=== PATIENT | female | born 1950 | race Caucasian/White ===

== ENCOUNTER 2018-03-25 12:19 | Inpatient (IN) | payer MEDICARE, BC ==
[2018-03-24 15:13] LABS: BASOPHILS % (AUTO) 0.6 % (0-1); EOSINOPHILS # (AUTO) 0.1 X10'3 (0-0.9); EOSINOPHILS % (AUTO) 1.6 % (0-6); LYMPHOCYTES # (AUTO) 3.1 X10'3 (1.1-4.8); LYMPHOCYTES % (AUTO) 40.8 % (21-51); MEAN CORPUSCULAR HGB CONC 34.2 % (33.0-36.5); MEAN CORPUSCULAR VOLUME 87.7 FL (78-98); MEAN PLATELET VOLUME 7.6 FL (7.4-10.4); MONOCYTES # (AUTO) 0.5 X10'3 (0-0.9); NEUTROPHILS # (AUTO) 3.9 X10'3 (1.8-7.7); PRE OP HEMATOCRIT 39.8 % (35.0-45.0); PRE OP HEMOGLOBIN 13.6 g/dL (12.0-16.0); PRE OP PLATELET COUNT 358 X10'3 (140-440); RED BLOOD COUNT 4.53 X10'6 (4.20-5.60); RED CELL DISTRIBUTION WIDTH 13.5 % (11.5-14.5)
[2018-03-24 15:20] LABS: CLARITY,URINE CLEAR (Clear); COLOR,URINE YELLOW (Yellow); GLUCOSE, URINE NEGATIVE (Neg); KETONES,URINE NEGATIVE (Neg); LEUKOCYTE ESTERASE ,URINE NEGATIVE (Neg); NITRITES, URINE NEGATIVE (Neg); OCCULT BLOOD,URINE MODERATE (Neg); PH,URINE 5.5 (4.8-8.0); PROTEIN,URINE NEGATIVE (Neg)
[2018-03-24 15:22] LABS: UA COLLECTION TYPE CLN CATCH MIDSTREAM
[2018-03-24 15:26] LABS: BACTERIA,URINE 1+ /HPF (Neg); MUCUS STRANDS FEW /LPF (Neg); SQUAMOUS EPITHELIAL CELL,UR FEW /LPF (FEW); WBC,URINE 0-4 /HPF (0-4)
[2018-03-24 15:30] LABS: ALBUMIN 4.1 G/DL (3.4-5.0); ALBUMIN/GLOBULIN RATIO 1.1 (1.1-1.5); ALKALINE PHOSPHATASE 99 IU/L (46-116); BLOOD UREA NITROGEN 20 MG/DL (7-18); BUN/CREATININE RATIO 24.4 (6.6-38.0); CALCIUM 9.8 MG/DL (8.5-10.1); CHLORIDE 103 MMOL/L (99-107); CREATININE 0.82 MG/DL (0.40-0.90); PRE OP ALT 33 U/L (30-65); PRE OP ANION GAP 10 (8-16); PRE OP AST 21 U/L (10-37); PRE OP GLUCOSE 106 MG/DL (70-104); PRE OP POTASSIUM 3.6 MMOL/L (3.4-5.1); PRE OP SODIUM 141 MMOL/L (135-145); TOTAL CARBON DIOXIDE 28.4 MMOL/L (24-32); TOTAL PROTEIN 7.8 G/DL (6.4-8.2); eGFR 69 ML/MIN
[2018-03-25] VITALS (16 sets, daily range): BP systolic 94–127; BP diastolic 46–75
[~2018-03-25] VITALS: Ht 170.2 cm; Wt 108.3 kg
[~2018-03-25 12:19] MED LIST: ASPI-611 PO; ATEN50TA PO; CHOL400T PO; Cefazolin 2GM/100ML NS IVPB IV ONE; DOCUMENT DATE & TIME OF BETA-BLOCKER PO ONE; FISH OIL; FLUO20CA39 PO; HYDR12.55 PO; PRAV40TA3 PO; UBID50TA3 PO; famotidine 20mg tablet PO ONE; ringers solution, lacted 1,000 ML IV SCH
[2018-03-25] MEDS ORDERED: LIDOcaine 1% (10mg/ml) 2ml vial ONE ×2 (13:01→13:41)
[2018-03-25] MEDS ORDERED: ringers solution, lacted 1,000 ML IV SCH (13:49)
[2018-03-25] MEDS ORDERED: ondansetron/PF 4mg/2ml inj IV PRN ×2 (13:50→18:50)
[2018-03-25] MEDS ORDERED: meperidine/PF 25mg/ml syringe IV PRN ×3 (13:50)
[2018-03-25] MEDS ORDERED: morphine 4 MG/ML inj SYRINge IV PRN ×2 (13:50)
[2018-03-25] MEDS ORDERED: proCHLORperazine 10 MG/2 ml inj IV PRN (13:50)
[2018-03-25] MEDS ORDERED: sevoflurane 250ml liquid IH ONE (14:33)
[2018-03-25] MEDS ORDERED: glycopyrrolate 0.2mg/ml inj ONE (14:33)
[2018-03-25] MEDS ORDERED: dexamethasone sod phosphate 4mg/ml inj. ONE (14:33)
[2018-03-25] MEDS ORDERED: ondansetron/PF 4mg/2ml inj ONE (14:33)
[2018-03-25] MEDS ORDERED: MIDAZolam 5mg/5ml vial ONE (14:34)
[2018-03-25] MEDS ORDERED: fentaNYL /PF 50mcg/ml 5ml ampule ONE (14:47)
[2018-03-25] MEDS ORDERED: propofol inj 20 ML IV ONE (14:52)
[2018-03-25] MEDS ORDERED: rocuronium 10mg/ml inj IV ONE ×2 (15:31→15:32)
[2018-03-25] MEDS ORDERED: fentaNYL/PF 50MCG/1 ML 2ML syringe ONE (18:08)
[2018-03-25] MEDS: NORMAL SALINE IV SCH (18:15)
[2018-03-25] MEDS: NALOXONE IV SCH (18:15)
[2018-03-25] MEDS ORDERED: neostigmine methylsulfate 1 MG/ML 10ml vial ONE (18:38)
[2018-03-25] MEDS ORDERED: [UNRECOGNIZED DRUG - OTHER] EPI SCH (19:00)
[2018-03-25] MEDS ORDERED: BUPIVACAINE EPI SCH ×3 (19:00→20:40)
[2018-03-25] MEDS ORDERED: MORPHINE EPI SCH ×3 (19:00→20:40)
[2018-03-25 19:06] LABS: ABG BASE EXCESS -1.3 mmol/L (-2.0-3.0); ABG OXYGEN SATURATION 98.7 % (95-98); ABG PCO2 (T) 41.2 mmHg (32.0-45.0); ABG PO2 (T) 140.1 mmHg (83-108); FCOHb 0.3 % (0.5-1.5); FLOW 15 L/min; FMetHb 0.3 % (0.3-1.12); FO2Hb 98.1 % (94-100); PATIENT TEMPERATURE 36.2; RESPIRATORY RATE (OBSERVED) 18 b/min; TOTAL HEMOGLOBIN 13.5 G/dl (12.0-16.0)
[2018-03-25] MEDS ORDERED: [UNRECOGNIZED DRUG - OTHER] EPI SCH (19:14)
[2018-03-25] MEDS ORDERED: [UNRECOGNIZED DRUG - OTHER] EPI SCH (20:40)
[2018-03-25] MEDS: atorvastatin 10mg tablet PO SCH (21:00)
[2018-03-26] VITALS (24 sets, daily range): BP systolic 92–130; BP diastolic 46–70
[2018-03-26] MEDS ORDERED: NORepinephrine 8mg/ 250ml NS 250 ML IV SCH (01:30)
[2018-03-26] MEDS ORDERED: NORepinephrine 8mg/ 250ml NS 250 ML IV ONE (01:36)
[2018-03-26] MEDS: potassium CL 20mEq in D5-1/2NS 1,000 ML IV SCH ×3 (01:40→13:54)
[2018-03-26] MEDS: ceFAZolin inj. 1,000 MG in dextrose 5%-water 50ml 50 ML IV SCH ×2 (01:40→09:01)
[2018-03-26 02:54] LABS: BASOPHILS % (AUTO) 0.2 % (0-1); EOSINOPHILS % (AUTO) 0 % (0-6); HEMATOCRIT 37.6 % (35.0-45.0); HEMOGLOBIN 12.7 g/dl (12.0-16.0); LYMPHOCYTES # (AUTO) 0.8 X10'3 (1.1-4.8); LYMPHOCYTES % (AUTO) 5.4 % (21-51); MEAN CORPUSCULAR HEMOGLOBIN 30.2 PG (27.0-31.0); MEAN CORPUSCULAR HGB CONC 33.9 % (33.0-36.5); MEAN CORPUSCULAR VOLUME 89.2 FL (78-98); MEAN PLATELET VOLUME 7.8 FL (7.4-10.4); MONOCYTES # (AUTO) 0.5 X10'3 (0-0.9); MONOCYTES % (AUTO) 3.2 % (2-12); NEUTROPHILS # (AUTO) 14.3 X10'3 (1.8-7.7); NEUTROPHILS % (AUTO) 91.2 % (42-75); PLATELET COUNT 323 X10'3 (140-440); RED BLOOD COUNT 4.21 X10'6 (4.20-5.60); RED CELL DISTRIBUTION WIDTH 13.4 % (11.5-14.5); WHITE BLOOD COUNT 15.7 X10'3 (4.5-11.0)
[2018-03-26 03:08] LABS: ALBUMIN 3.2 G/DL (3.4-5.0); ANION GAP 10 (8-16); BLOOD UREA NITROGEN 13 MG/DL (7-18); BUN/CREATININE RATIO 14.4 (6.6-38.0); CALCIUM 8.4 MG/DL (8.5-10.1); CHLORIDE 103 MMOL/L (99-107); GLUCOSE 182 MG/DL (70-104); POTASSIUM 4.4 MMOL/L (3.5-5.1); SODIUM 140 MMOL/L (135-145); TOTAL CARBON DIOXIDE 27.3 MMOL/L (24-32); eGFR 62 ML/MIN
[2018-03-26] MEDS: diphenhydrAMINE 50 mg/ml inj IV PRN ×2 (04:08→21:20)
[2018-03-26] MEDS: atenolol 50mg tablet PO SCH (08:00)
[2018-03-26] MEDS ORDERED: non-formulary drug (Ubidecarenone (Coq10) 50 MG) PO SCH (08:00)
[2018-03-26] MEDS: FLUoxetine 20mg capsule PO SCH (09:00)
[2018-03-26] MEDS: HYDROchlorothiazide 12.5mg capsule PO SCH (09:00)
[2018-03-26] MEDS: aspirin 81mg tablet.DR PO SCH (09:00)
[2018-03-26] MEDS: cholecalciferol (vitamin D) 400 unit tablet PO SCH (09:01)
[2018-03-26] MEDS: morphine sulfate /PF inj. 8 MG in normal saline 100ml IV soln 84 ML EPI SCH (10:32)
[2018-03-26] MEDS: NORMAL SALINE IV SCH (14:15)
[2018-03-26] MEDS: NALOXONE IV SCH (14:15)
[2018-03-26] MEDS ORDERED: ketorolac trometh. 30mg/ml inj. IV ONE (20:45)
[2018-03-26] MEDS: atorvastatin 10mg tablet PO SCH (21:20)
[2018-03-26] MEDS: magnesium oxide 400mg tablet PO SCH (21:20)
[2018-03-26] MEDS ORDERED: ketorolac tromethamine 15mg/ml inj. IV ONE (21:35)
[2018-03-27] VITALS (24 sets, daily range): BP systolic 90–122; BP diastolic 45–57
[2018-03-27] MEDS: morphine sulfate /PF inj. 8 MG in normal saline 100ml IV soln 84 ML EPI SCH ×2 (02:40→13:45)
[2018-03-27 03:15] LABS: BASOPHILS % (AUTO) 0.3 % (0-1); EOSINOPHILS # (AUTO) 0.1 X10'3 (0-0.9); EOSINOPHILS % (AUTO) 0.8 % (0-6); HEMATOCRIT 35.2 % (35.0-45.0); HEMOGLOBIN 11.8 g/dl (12.0-16.0); LYMPHOCYTES # (AUTO) 2.1 X10'3 (1.1-4.8); LYMPHOCYTES % (AUTO) 12.8 % (21-51); MEAN CORPUSCULAR HGB CONC 33.4 % (33.0-36.5); MEAN CORPUSCULAR VOLUME 89.8 FL (78-98); MEAN PLATELET VOLUME 7.5 FL (7.4-10.4); MONOCYTES # (AUTO) 1.3 X10'3 (0-0.9); NEUTROPHILS # (AUTO) 12.5 X10'3 (1.8-7.7); NEUTROPHILS % (AUTO) 78.1 % (42-75); PLATELET COUNT 296 X10'3 (140-440); RED BLOOD COUNT 3.92 X10'6 (4.20-5.60); RED CELL DISTRIBUTION WIDTH 13.9 % (11.5-14.5); WHITE BLOOD COUNT 16.1 X10'3 (4.5-11.0)
[2018-03-27 03:27] LABS: ALBUMIN 2.9 G/DL (3.4-5.0); ANION GAP 3 (8-16); BLOOD UREA NITROGEN 11 MG/DL (7-18); BUN/CREATININE RATIO 13.3 (6.6-38.0); CALCIUM 8.1 MG/DL (8.5-10.1); CHLORIDE 102 MMOL/L (99-107); CREATININE 0.83 MG/DL (0.40-0.90); GLUCOSE 145 MG/DL (70-104); SODIUM 136 MMOL/L (135-145); TOTAL CARBON DIOXIDE 30.9 MMOL/L (24-32); eGFR 68 ML/MIN
[2018-03-27 03:47] LABS: PHOSPHORUS 2.5 MG/DL (2.3-4.5)
[2018-03-27] MEDS: potassium CL 20mEq in D5-1/2NS 1,000 ML IV SCH ×2 (04:33→11:46)
[2018-03-27] MEDS: diphenhydrAMINE 50 mg/ml inj IV PRN ×3 (05:12→13:01)
[2018-03-27] MEDS: aspirin 81mg tablet.DR PO SCH (07:57)
[2018-03-27] MEDS: magnesium oxide 400mg tablet PO SCH ×2 (07:57→19:40)
[2018-03-27] MEDS: cholecalciferol (vitamin D) 400 unit tablet PO SCH (07:57)
[2018-03-27] MEDS: FLUoxetine 20mg capsule PO SCH (07:57)
[2018-03-27] MEDS: atenolol 50mg tablet PO SCH (07:58)
[2018-03-27] MEDS: HYDROchlorothiazide 12.5mg capsule PO SCH (08:00)
[2018-03-27] MEDS: NALOXONE IV SCH ×2 (10:15→16:04)
[2018-03-27] MEDS: NORMAL SALINE IV SCH ×2 (10:15→16:04)
[2018-03-27] MEDS: HYDROcodone/acetaminophen 10/325mg tab PO PRN ×2 (18:25→22:24)
[2018-03-27] MEDS: atorvastatin 10mg tablet PO SCH (19:41)
[2018-03-27] MEDS: ketorolac tromethamine 15mg/ml inj. IV SCH (19:41)
[2018-03-28] VITALS (23 sets, daily range): BP systolic 81–131; BP diastolic 49–67
[2018-03-28] MEDS: ketorolac tromethamine 15mg/ml inj. IV SCH ×3 (01:35→14:00)
[2018-03-28 02:35] LABS: BASOPHILS % (AUTO) 0.2 % (0-1); EOSINOPHILS # (AUTO) 0.1 X10'3 (0-0.9); EOSINOPHILS % (AUTO) 1.4 % (0-6); HEMATOCRIT 30.8 % (35.0-45.0); HEMOGLOBIN 10.4 g/dl (12.0-16.0); MEAN CORPUSCULAR HEMOGLOBIN 30.3 PG (27.0-31.0); MEAN CORPUSCULAR HGB CONC 33.8 % (33.0-36.5); MEAN CORPUSCULAR VOLUME 89.4 FL (78-98); MEAN PLATELET VOLUME 7.4 FL (7.4-10.4); MONOCYTES # (AUTO) 0.7 X10'3 (0-0.9); MONOCYTES % (AUTO) 7.1 % (2-12); NEUTROPHILS # (AUTO) 6.8 X10'3 (1.8-7.7); NEUTROPHILS % (AUTO) 70.3 % (42-75); PLATELET COUNT 212 X10'3 (140-440); RED BLOOD COUNT 3.45 X10'6 (4.20-5.60); RED CELL DISTRIBUTION WIDTH 13.5 % (11.5-14.5); WHITE BLOOD COUNT 9.7 X10'3 (4.5-11.0)
[2018-03-28 02:51] LABS: ALBUMIN 2.5 G/DL (3.4-5.0); ANION GAP 0 (8-16); BLOOD UREA NITROGEN 11 MG/DL (7-18); BUN/CREATININE RATIO 15.9 (6.6-38.0); CHLORIDE 100 MMOL/L (99-107); CREATININE 0.69 MG/DL (0.40-0.90); GLUCOSE 128 MG/DL (70-104); POTASSIUM 3.6 MMOL/L (3.5-5.1); SODIUM 133 MMOL/L (135-145); eGFR 84 ML/MIN
[2018-03-28] MEDS: HYDROchlorothiazide 12.5mg capsule PO SCH (08:03)
[2018-03-28] MEDS: atenolol 50mg tablet PO SCH (08:03)
[2018-03-28] MEDS: cholecalciferol (vitamin D) 400 unit tablet PO SCH (08:03)
[2018-03-28] MEDS: aspirin 81mg tablet.DR PO SCH (08:03)
[2018-03-28] MEDS: magnesium oxide 400mg tablet PO SCH ×2 (08:03→20:04)
[2018-03-28] MEDS: FLUoxetine 20mg capsule PO SCH (08:03)
[2018-03-28] MEDS: furosemide 20 MG/2 ML vial IV SCH ×2 (10:05→20:04)
[2018-03-28] MEDS: potassium CL 20mEq in D5-1/2NS 1,000 ML IV SCH (10:06)
[2018-03-28] MEDS: morphine sulfate /PF inj. 8 MG in normal saline 100ml IV soln 84 ML EPI SCH (12:00)
[2018-03-28] MEDS: HYDROcodone/acetaminophen 10/325mg tab PO PRN ×2 (16:02→20:19)
[2018-03-28] MEDS: atorvastatin 10mg tablet PO SCH (20:04)
[2018-03-29] VITALS (7 sets, daily range): BP systolic 103–131; BP diastolic 48–81
[2018-03-29] MEDS: magnesium oxide 400mg tablet PO SCH ×5 (00:55→20:12)
[2018-03-29] MEDS: HYDROcodone/acetaminophen 10/325mg tab PO PRN ×6 (00:56→23:06)
[2018-03-29 05:50] LABS: BASOPHILS % (AUTO) 0.2 % (0-1); EOSINOPHILS # (AUTO) 0.2 X10'3 (0-0.9); EOSINOPHILS % (AUTO) 2.4 % (0-6); HEMATOCRIT 34.4 % (35.0-45.0); HEMOGLOBIN 11.6 g/dl (12.0-16.0); LYMPHOCYTES # (AUTO) 1.8 X10'3 (1.1-4.8); LYMPHOCYTES % (AUTO) 24.7 % (21-51); MEAN CORPUSCULAR HGB CONC 33.7 % (33.0-36.5); MEAN CORPUSCULAR VOLUME 89.1 FL (78-98); MEAN PLATELET VOLUME 7.8 FL (7.4-10.4); MONOCYTES # (AUTO) 0.6 X10'3 (0-0.9); MONOCYTES % (AUTO) 7.6 % (2-12); NEUTROPHILS # (AUTO) 4.9 X10'3 (1.8-7.7); NEUTROPHILS % (AUTO) 65.1 % (42-75); PLATELET COUNT 260 X10'3 (140-440); RED BLOOD COUNT 3.86 X10'6 (4.20-5.60); RED CELL DISTRIBUTION WIDTH 13.4 % (11.5-14.5); WHITE BLOOD COUNT 7.5 X10'3 (4.5-11.0)
[2018-03-29 06:38] LABS: ALBUMIN 2.5 G/DL (3.4-5.0); ANION GAP 3 (8-16); BLOOD UREA NITROGEN 10 MG/DL (7-18); BUN/CREATININE RATIO 15.2 (6.6-38.0); CALCIUM 8.6 MG/DL (8.5-10.1); CHLORIDE 101 MMOL/L (99-107); CREATININE 0.66 MG/DL (0.40-0.90); GLUCOSE 107 MG/DL (70-104); POTASSIUM 3.5 MMOL/L (3.5-5.1); SODIUM 140 MMOL/L (135-145); TOTAL CARBON DIOXIDE 35.6 MMOL/L (24-32); eGFR 89 ML/MIN
[2018-03-29] MEDS: aspirin 81mg tablet.DR PO SCH (08:14)
[2018-03-29] MEDS: FLUoxetine 20mg capsule PO SCH (08:14)
[2018-03-29] MEDS: cholecalciferol (vitamin D) 400 unit tablet PO SCH (08:14)
[2018-03-29] MEDS: atenolol 50mg tablet PO SCH (08:14)
[2018-03-29] MEDS: furosemide 20 MG/2 ML vial IV SCH ×2 (08:14→20:12)
[2018-03-29] MEDS: HYDROchlorothiazide 12.5mg capsule PO SCH (08:14)
[2018-03-29] MEDS: enoxaparin 40mg/0.4ml syringe SUBCUT SCH (08:15)
[2018-03-29] MEDS: atorvastatin 10mg tablet PO SCH (20:38)
[2018-03-30] MEDS: magnesium oxide 400mg tablet PO SCH ×6 (00:06→20:19)
[2018-03-30] MEDS: HYDROmorphone 1 mg/ml syringe IV PRN ×4 (02:21→20:47)
[2018-03-30 05:59] LABS: BASOPHILS % (AUTO) 0.2 % (0-1); EOSINOPHILS # (AUTO) 0.1 X10'3 (0-0.9); EOSINOPHILS % (AUTO) 1.7 % (0-6); HEMOGLOBIN 12.1 g/dl (12.0-16.0); LYMPHOCYTES # (AUTO) 2.1 X10'3 (1.1-4.8); LYMPHOCYTES % (AUTO) 24.3 % (21-51); MEAN CORPUSCULAR HEMOGLOBIN 29.9 PG (27.0-31.0); MEAN CORPUSCULAR HGB CONC 33.7 % (33.0-36.5); MEAN CORPUSCULAR VOLUME 88.7 FL (78-98); MEAN PLATELET VOLUME 7.6 FL (7.4-10.4); MONOCYTES # (AUTO) 0.7 X10'3 (0-0.9); MONOCYTES % (AUTO) 8.4 % (2-12); NEUTROPHILS # (AUTO) 5.5 X10'3 (1.8-7.7); NEUTROPHILS % (AUTO) 65.4 % (42-75); PLATELET COUNT 302 X10'3 (140-440); RED BLOOD COUNT 4.05 X10'6 (4.20-5.60); RED CELL DISTRIBUTION WIDTH 13.6 % (11.5-14.5); WHITE BLOOD COUNT 8.5 X10'3 (4.5-11.0)
[2018-03-30 06:20] LABS: ALBUMIN 2.7 G/DL (3.4-5.0); ANION GAP 5 (8-16); BLOOD UREA NITROGEN 12 MG/DL (7-18); BUN/CREATININE RATIO 16.4 (6.6-38.0); CALCIUM 8.7 MG/DL (8.5-10.1); CHLORIDE 99 MMOL/L (99-107); CREATININE 0.73 MG/DL (0.40-0.90); GLUCOSE 115 MG/DL (70-104); POTASSIUM 3.7 MMOL/L (3.5-5.1); SODIUM 140 MMOL/L (135-145); TOTAL CARBON DIOXIDE 35.7 MMOL/L (24-32); eGFR 79 ML/MIN
[2018-03-30 06:53] VITALS: BP 109/60
[2018-03-30] MEDS: HYDROcodone/acetaminophen 10/325mg tab PO PRN ×3 (07:32→16:50)
[2018-03-30] MEDS: aspirin 81mg tablet.DR PO SCH (07:32)
[2018-03-30] MEDS: atenolol 50mg tablet PO SCH (07:32)
[2018-03-30] MEDS: cholecalciferol (vitamin D) 400 unit tablet PO SCH (07:32)
[2018-03-30] MEDS: furosemide 20 MG/2 ML vial IV SCH ×2 (07:32→20:18)
[2018-03-30] MEDS: FLUoxetine 20mg capsule PO SCH (07:32)
[2018-03-30] MEDS: HYDROchlorothiazide 12.5mg capsule PO SCH (07:32)
[2018-03-30] MEDS: enoxaparin 40mg/0.4ml syringe SUBCUT SCH (07:33)
[2018-03-30 11:00] VITALS: BP 104/55
[2018-03-30 15:00] VITALS: BP 106/48
[2018-03-30 19:00] VITALS: BP 127/69
[2018-03-30] MEDS: atorvastatin 10mg tablet PO SCH (20:19)
[2018-03-30 23:00] VITALS: BP 121/62
[2018-03-31] MEDS: magnesium oxide 400mg tablet PO SCH ×5 (00:43→19:47)
[2018-03-31] MEDS: HYDROcodone/acetaminophen 10/325mg tab PO PRN ×4 (00:44→19:46)
[2018-03-31 03:00] VITALS: BP 114/51
[2018-03-31 06:00] VITALS: BP 139/74
[2018-03-31] MEDS: enoxaparin 40mg/0.4ml syringe SUBCUT SCH (07:49)
[2018-03-31] MEDS: FLUoxetine 20mg capsule PO SCH (07:49)
[2018-03-31] MEDS: atenolol 50mg tablet PO SCH (07:49)
[2018-03-31] MEDS: aspirin 81mg tablet.DR PO SCH (07:49)
[2018-03-31] MEDS: furosemide 20 MG/2 ML vial IV SCH ×2 (07:49→19:46)
[2018-03-31] MEDS: HYDROchlorothiazide 12.5mg capsule PO SCH (07:49)
[2018-03-31] MEDS: cholecalciferol (vitamin D) 400 unit tablet PO SCH (07:52)
[2018-03-31 11:00] VITALS: BP 112/61
[2018-03-31] MEDS: HYDROmorphone 1 mg/ml syringe IV PRN (14:08)
[2018-03-31 15:00] VITALS: BP 108/53
[2018-03-31 19:00] VITALS: BP 113/53
[2018-03-31] MEDS ORDERED: magnesium citrate 296ml oral solution PO ONE (19:40)
[2018-03-31] MEDS: atorvastatin 10mg tablet PO SCH (20:07)
[2018-03-31 23:00] VITALS: BP 110/57
[2018-04-01] MEDS: HYDROcodone/acetaminophen 10/325mg tab PO PRN ×3 (02:24→12:58)
[2018-04-01 03:00] VITALS: BP 128/62
[2018-04-01 06:00] VITALS: BP 122/56
[2018-04-01] MEDS: magnesium oxide 400mg tablet PO SCH ×4 (08:00→16:00)
[2018-04-01] MEDS: furosemide 20 MG/2 ML vial IV SCH (08:03)
[2018-04-01] MEDS: cholecalciferol (vitamin D) 400 unit tablet PO SCH (08:03)
[2018-04-01] MEDS: enoxaparin 40mg/0.4ml syringe SUBCUT SCH (08:03)
[2018-04-01] MEDS: FLUoxetine 20mg capsule PO SCH (08:04)
[2018-04-01] MEDS: HYDROchlorothiazide 12.5mg capsule PO SCH (08:04)
[2018-04-01] MEDS: atenolol 50mg tablet PO SCH (08:04)
[2018-04-01] MEDS: aspirin 81mg tablet.DR PO SCH (08:04)
[2018-04-01 11:00] VITALS: BP 107/55
== END 2018-04-01 15:15 | disposition home health service (06) | DRG 165 ==
LOC: PAS IN 12:19 → EDSTATUS 13:50 → CICU 2S 15:54 → PCU 3S 03-28 23:59
PROVIDERS: ADMIT Surgery; ATTEND Surgery
PROC: 07B70ZX Excision of Thorax Lymphatic, Open Approach, Diagnostic (ICD-10-PCS; 2018-03-25)
PROC: 0BJ08ZZ Inspection of Tracheobronchial Tree, Via Natural or Artificial Opening Endoscopic (ICD-10-PCS; 2018-03-25)
PROC: 0W9B00Z Drainage of Left Pleural Cavity with Drainage Device, Open Approach (ICD-10-PCS; 2018-03-25)
PROC: 0B5P0ZZ Destruction of Left Pleura, Open Approach (ICD-10-PCS; 2018-03-25)
PROC: 0BBG0ZZ Excision of Left Upper Lung Lobe, Open Approach (ICD-10-PCS; principal; 2018-03-25 14:33)
DX: C34.12 Malignant neoplasm of upper lobe, left bronchus or lung (principal); I10 Essential (primary) hypertension; R59.0 Localized enlarged lymph nodes; Z90.710 Acquired absence of both cervix and uterus; Z98.49 Cataract extraction status, unspecified eye; Z79.899 Other long term (current) drug therapy; Z79.01 Long term (current) use of anticoagulants; Z80.0 Family history of malignant neoplasm of digestive organs; Z82.61 Family history of arthritis; Z82.49 Family history of ischemic heart disease and other diseases of the circulatory system; Z85.820 Personal history of malignant melanoma of skin
CPT/HCPCS: 36415; 36600; 71045; 71046; 80048; 80053; 81001; 82803; 82948; 83735; 84100; 85018; 85025; 85610; 85730; 86885; 86900; 86901; 87070; 88305; 88309; 88331; 88332; 88341; 88342; 93005; 94668; 97110; 97116; 97161; 97530; A6212; A6213; A6251; A6255; A6257; A6258; A6402; A6449; A7000; A7048; C1758; C9250; J0690; J1100; J1170; J1200; J1650; J1885; J1940; J2175; J2250; J2274; J2310; J2405; J2704; J2710; J3010; J3490; J7030; J7060; J7120

== ENCOUNTER 2019-06-30 07:15 | Day surgery (SDC) | payer MEDICARE, BC ==
[2019-06-28 11:21] LABS: BASOPHILS % (AUTO) 0.3 % (0-1); EOSINOPHILS # (AUTO) 0.1 X10'3 (0-0.9); EOSINOPHILS % (AUTO) 1.3 % (0-6); HEMATOCRIT 38.1 % (35.0-45.0); LYMPHOCYTES # (AUTO) 1.2 X10'3 (1.1-4.8); LYMPHOCYTES % (AUTO) 22.8 % (21-51); MEAN CORPUSCULAR VOLUME 88.1 FL (78-98); MEAN PLATELET VOLUME 6.6 FL (7.4-10.4); MONOCYTES # (AUTO) 0.4 X10'3 (0-0.9); MONOCYTES % (AUTO) 7.8 % (2-12); NEUTROPHILS # (AUTO) 3.7 X10'3 (1.8-7.7); NEUTROPHILS % (AUTO) 67.8 % (42-75); PLATELET COUNT 327 X10'3 (140-440); RED BLOOD COUNT 4.33 X10'6 (4.20-5.60); RED CELL DISTRIBUTION WIDTH 15.3 % (11.5-14.5); WHITE BLOOD COUNT 5.5 X10'3 (4.5-11.0)
[2019-06-28 11:35] LABS: PARTIAL THROMBOPLASTIN TIME 28 SECONDS (22-32)
[2019-06-28 11:42] LABS: ALANINE AMINOTRANSFERASE 29 U/L (12-78); ALBUMIN 3.9 G/DL (3.4-5.0); ALBUMIN/GLOBULIN RATIO 1.1 (1.1-1.5); ALKALINE PHOSPHATASE 86 IU/L (46-116); ANION GAP 9 (8-16); ASPARTATE AMINO TRANSFERASE 18 U/L (10-37); BILIRUBIN,TOTAL 1.2 MG/DL (0.1-1.0); BLOOD UREA NITROGEN 13 MG/DL (7-18); BUN/CREATININE RATIO 16.9 (6.6-38.0); CALCIUM 9.1 MG/DL (8.5-10.1); CHLORIDE 105 MMOL/L (99-107); CREATININE 0.77 MG/DL (0.40-0.90); GLUCOSE 72 MG/DL (70-104); POTASSIUM 3.7 MMOL/L (3.5-5.1); SODIUM 142 MMOL/L (135-145); TOTAL PROTEIN 7.5 G/DL (6.4-8.2); eGFR 74 ML/MIN
[~2019-06-30] VITALS: Ht 170.2 cm; Wt 88.7 kg
[2019-06-30] VITALS (11 sets, daily range): BP systolic 91–130; BP diastolic 30–70
[~2019-06-30 07:15] MED LIST changes: -Cefazolin 2GM/100ML NS IVPB IV ONE; -DOCUMENT DATE & TIME OF BETA-BLOCKER PO ONE; -famotidine 20mg tablet PO ONE; -ringers solution, lacted 1,000 ML IV SCH
[2019-06-30] MEDS ORDERED: diphenhydrAMINE 25mg capsule PO PRN (07:35)
[2019-06-30] MEDS ORDERED: nitroGLYCERIN 0.4mg SUBLingual tab SL PRN (07:35)
[2019-06-30] MEDS ORDERED: LORazepam 0.5 MG tablet PO PRN (07:35)
[2019-06-30] MEDS ORDERED: normal saline 1,000 ML IV SCH (07:35)
[2019-06-30] MEDS ORDERED: CYAN250014 PO (08:21)
[2019-06-30] MEDS ORDERED: ALBU8.5H8 INH (08:21)
[2019-06-30] MEDS ORDERED: midazolam 2 mg/2 ml injection ONE ×2 (09:57→11:51)
[2019-06-30] MEDS ORDERED: fentaNYL/PF 50MCG/1 ML 2ML syringe ONE ×2 (09:57→11:51)
[2019-06-30] MEDS ORDERED: LIDOcaine 1% (10mg/ml)w/preservative injection 20ml MDV ONE (09:57)
[2019-06-30] MEDS ORDERED: iohexol 350MG/ML 100ml bottle IV ONE (09:58)
[2019-06-30] MEDS ORDERED: iohexol 350 MG/ML 50ML vial IV ONE (09:58)
[2019-06-30] MEDS ORDERED: OXAZEpam 15mg capsule PO PRN (13:05)
[2019-06-30] MEDS ORDERED: HYDROcodone/acetaminophen 10/325mg tab PO PRN (13:05)
[2019-06-30] MEDS ORDERED: HYDROcodone/acetaminophen 5mg/325mg tablet PO PRN (13:05)
[2019-06-30] MEDS ORDERED: ondansetron/PF 4mg/2ml inj IV PRN (13:05)
[2019-06-30] MEDS ORDERED: proCHLORperazine 10 MG/2 ml inj IV PRN (13:05)
== END 2019-06-30 18:00 | disposition home or self-care (01) ==
LOC: SSTAY O 07:15
PROVIDERS: ATTEND Internal Medicine Cardiovascular Disease
DX: I25.10 Atherosclerotic heart disease of native coronary artery without angina pectoris (principal); J44.9 Chronic obstructive pulmonary disease, unspecified; E78.5 Hyperlipidemia, unspecified; I10 Essential (primary) hypertension; E66.9 Obesity, unspecified; Z68.30 Body mass index [BMI] 30.0-30.9, adult; Z79.01 Long term (current) use of anticoagulants; Z87.891 Personal history of nicotine dependence; Z79.899 Other long term (current) drug therapy
CPT/HCPCS: 36415; 71046; 80053; 83880; 85025; 85610; 85730; 93005; 93458; 99152; C1769; J1644; J2001; J2250; J3010; J7030; Q0163; Q9967; 99153; A4620; A6258; C1760